=== PATIENT | female | born 1950 | race Caucasian/White ===

== ENCOUNTER 2022-05-05 13:53 | Outpatient (CLI) | payer MEDICARE, SELFPAY ==
--- NOTE | ~2022-05-05 | DEXA_ITS ---
Bone Density Report Name: YOU DAMON Age: 71 Sex: Female Ethnicity: White Date of : 1950 Indication: postmenopausal; screening for osteoporosis; hysterectomy; Referring Provider: LORI DANG Study: Bone densitometry was performed. Exam Date: May 05, 2022 Accession number: [id number] Bone Density: Region BMD T-score Z-score Classification AP Spine(L1-L4) 1.070 0.2 2.5 Normal Femoral Neck (Left) 0.778 -0.6 1.3 Normal Total Hip (Left) 0.959 0.1 1.8 Normal Femoral Neck (Right) 0.657 -1.7 0.2 Osteopenia Total Hip (Right) 0.859 -0.7 1.0 Normal Total Hip Mean 0.909 -0.3 1.4 Normal World Health Organization criteria for BMD impression classify patients as: Normal (T-score at or above -1.0), Osteopenia (T-score between -1.0 and -2.5), or Osteoporosis (T-score at or below -2.5). 10-year Fracture Risk(1): Major Osteoporotic Fracture 11% Hip Fracture 2.2% Reported Risk Factors: [place] (), Neck BMD=0.657, BMI=24.8 (1) FRAX(R) Version 3.08. Fracture probability calculated for an untreated patient. Fracture probability may be lower if the patient has received treatment. Clinical Information Provided by Patient: Has used the following medications: Vitamin D, Calcium Has the following medical conditions: Hysterectomy Patient maximum height was 63 Menopause Age: 48 Drinks caffeinated beverages Onset of menses at age 11 Number of children 3 Impression: The patient has low bone mass, based on the Right Femoral Neck T-score. The patient has an estimated ten-year risk of hip fracture of 2.2% and an estimated ten-year risk of major fracture of 11%, based on the WHO FRAX algorithm. Discussion: BONE DENSITY IS LOW AT ONE OR MORE SKELETAL SITES. This patient's lowest T-score is low at one or more skeletal sites. It meets the World Health Organization's (WHO) criteria for ?low bone mass? (T-score between -1.0 and -2.5). The patient's 10-year risk of fracture as calculated by FRAX is less than the threshold where pharmacological therapy is recommended by the National Osteoporosis Foundation (NOF). However, all treatment decisions require clinical judgment and consideration of individual patient factors, including patient preferences, comorbidities, previous drug use, risk factors not captured in the FRAX model (e.g., frailty, falls, vitamin D deficiency, increased bone turnover, interval significant decline in bone density) and possible under or overestimation of fracture risk by FRAX. The patient should follow a healthful lifestyle (good nutrition with adequate calcium and vitamin D, and appropriate weight-bearing exercise). Follow-Up: Consider repeating this study in 2 to 3 years to reassess this patient's status, or sooner if there is some new clinical indication.
== END 2022-05-05 13:54 | disposition home or self-care (01) ==
LOC: ANHIMG 13:57
PROVIDERS: PCP Family Medicine; Visit Provider Nurse Practitioner Family
DX: Z78.0 Asymptomatic menopausal state (principal); M85.851 Other specified disorders of bone density and structure, right thigh
CPT/HCPCS: 77080

== ENCOUNTER 2022-08-10 07:43 | Outpatient (CLI) | payer OTHER, SELFPAY ==
--- NOTE | 2022-08-10 13:36 | ECG_ITS ---
Measurements Intervals [place] Rate: 75 P: 59 OR: 168 QRS: 17 QRSD: 130 T: 104 QT: 441 QTc: 495 Interpretive Statements SINUS RHYTHM MODERATE INTRAVENTRICULAR CONDUCTION DELAY ST DEVIATION AND MODERATE T-WAVE ABNORMALITY, CONSIDER LATERAL ISCHEMIA ABNORMAL ECG NO PREVIOUS ECG AVAILABLE FOR COMPARISON Electronically Signed On 08-10-2022 14:41:31 BUSINESS ENGLISH INSTRUCTOR by Jann Lindsay M.D.
== END 2022-08-10 07:44 | disposition home or self-care (01) ==
PROVIDERS: PCP Family Medicine; Visit Provider Nurse Practitioner Family
DX: Z13.6 Encounter for screening for cardiovascular disorders (principal); I45.9 Conduction disorder, unspecified
CPT/HCPCS: 93005

== ENCOUNTER 2022-10-29 16:54 | Outpatient (CLI) | payer MEDICARE, SELFPAY ==
--- NOTE | ~2022-10-29 | XR_ITS ---
Right Knee Technique: AP and lateral views were obtained. Clinical History: Pain Findings: No fracture or dislocation is seen. Osseous alignment is anatomic. Small tricompartmental o steophytes are present. Soft tissues are unremarkable. No joint effusion is seen. Impression: Mild tricompartmental osteoarthritis. Reviewed, dictated and finalized at location . Impression: Mild tricompartmental osteoarthritis.
--- NOTE | ~2022-10-29 | XR_ITS ---
Left Knee Technique: AP and lateral views were obtained. Clinical History: Pain Findings: No fracture or dislocation is seen. There is moderate tricompartmental degenerative spurrin g/osteophyte formation.. Soft tissues are unremarkable. No joint effusion is seen. Impression: Mild to moderate tricompartmental osteoarthritis, worst at the patellofemoral compartment. Reviewed, dictated and finalized at location . Impression: Mild to moderate tricompartmental osteoarthritis, worst at the patellofemoral c ompartment.
== END 2022-10-29 16:55 | disposition home or self-care (01) ==
LOC: ANHIMG 17:03
PROVIDERS: PCP Family Medicine; Visit Provider Nurse Practitioner Family
DX: M17.0 Bilateral primary osteoarthritis of knee (principal)
CPT/HCPCS: 73560

== ENCOUNTER 2024-11-14 14:34 | Outpatient (CLI) | payer MEDICARE, SELFPAY ==
--- OUTSIDE RECORDS SUMMARY | 2024-11-14 14:38 | XMS_ITS | Clinical Summary ---
Author Organization [facility] Address [address] [place] [address] Care Team Providers Care Early Head Start Director Name Role Phone Fredy Zelaya MD Primary Care Provider Allergies Active Allergy Reactions Criticality Noted Date Comments Sulfa (Sulfonamide Antibiotics) Urticaria,Hives High 04/07/2013 Sulfasalazine Hives Medium 10/22/2014 Medications rosuvastatin (CRESTOR) 10 mg tablet Take 1 tablet (10 mg total) by mouth daily 3 Active Myrbetriq 25 mg tablet extended release 24 hr Take 1 tablet (25 mg total) by mouth nightly 3 Active solifenacin (VESIcare) 5 mg tablet 3 Active ibuprofen (ADVIL,MOTRIN) 800 mg tablet TAKE 1 TABLET BY MOUTH WITH BREAKFAST AND DINNER NEEDED FOR PAIN 3 Active Active Problems Problem Noted Date Diagnosed Date Abnormal ECG 09/16/2022 Folliculitis 09/15/2021 11/17/2022 Melanocytic nevi of face 09/15/2021 023 Actinic keratosis 08/26/2020 11/17/2022 Overview (11/17/2022): Last Assessment & Plan: Bilateral cheeks and nasal dorsum Counseled patient on diagnosis, a/w sun exposure, pre-malignant nature w/ possible progression to SCC, and Tx options. Advised pt on importance of daily sun protection (SPF 30+, UVA/UVB) and monthly self skin exams. Discussed benefit, risks of LN2. Pt wish to proceed. LN2 applied to 4 lesions. See associated procedure note. Pt tolerated Tx well. Post-procedural blister and wound care instructions given. Neoplasm of uncertain behavior of skin 11/17/2022 Overview (11/17/2022): Last Assessment & Plan: DDx of right medial arm lesion: SCC vs. HAK vs. MMIS vs. ISK DDx of left anterior shoulder: BCC vs. Other Counseled pt on possible Dx and management options. Discussed benefit and risks of shave biopsy (including bleeding, infection, and possible scarring). Pt would like to proceed. Shave Biopsy x2 performed. Pt tolerated well. Post-procedure instructions given. Please see procedure note. Actinic skin damage 08/26/2020 11/17/2022 Overview (11/17/2022): Last Assessment & Plan: -Fair # of nevi and lentigines -Broad spectrum SPF-30 or higher sunscreen advised Skin lesion 10/29/2014 11/17/2022 Elevated cholesterol 02/16/2014 11/17/2022 Encounters Date Type Department Care Team Description 09/04/2024 3:45 PM CDT - 09/04/2024 11:59 PM CDT Hospital Encounter [facility] [place] [address] Screening mammogram, encounter for Discharge Disposition: Discharge to home or self care from Last 3 Months Surgical History Surgery Date Site/Laterality Comments HYSTERECTOMY 06/14/2001 - 06/13/2002 BLADDER SURGERY 06/14/2001 - 06/13/2002 Family History Medical History Relation Name Comments Asthma Brother Diabetes Father Heart disease Father Breast cancer Mother Ovarian cancer Mother Relation Name Status Comments Brother Alive Father Mother Social History Tobacco Use Types Packs/Day Years Used Date Smoking Tobacco: Never Smokeless Tobacco: Never AUDIT-C Answer Date Recorded Q1: How often do you have a drink containing alc ohol? 2-3 times a week 09/16/2022 Q2: How many drinks containi ng alcohol do you have on a typical day when you are drinking? 1 or 2 09/16/2022 Q3: How often do you have si x or more drinks on one occasion? 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 Gender Identity Not on file Sexual Orientation Not on file Obstetrics History Last Filed Vital Signs Vital Sign Reading Time Taken Comments Blood Pressure 136/86 11/17/2022 11:39 AM CDT Pulse 83 11/17/2022 11:39 AM CDT Temperature - - Respiratory Rate - - Oxygen Saturation 97% 10/21/2022 10: 03 AM CDT Inhaled Oxygen Concentration - - Weight 64.8 kg (142 lb 14.4 oz) 023 11:39 AM CDT Height 160 cm (5' 3) 11/17/2022 11:39 AM CDT Body Mass Index 25.31 11/17/2022 11:39 AM CDT Plan of Treatment Health Maintenance Due Date Last Done Comments Colon Cancer Screening-Colonoscopy 1950 Depression Screening 1950 Fall Risk Assessment 1950 Hepatitis C Screening 1950 DTaP/Tdap/Td Vaccine (1 - Tdap) 1960 Hepatitis B Screening 11/24/1967 Well Visit 65+ 2014 Zoster Vaccine (2 of 2) 09/14/2018 07/20/2018, 04/26 Osteoporosis Screening-Bone Density Scan 01/21/2020 01/20/2018, 01/20/2018 Influenza Vaccine (Season Ended) 2025 01/31/2020, 03/31/2019, 03/22/2019, Additional history exists Breast Cancer Screening-Mammogram 09/04/2025 09/04/2024, 07/13/2023, 06/22/2022, Additional history exists Pneumococcal vaccine 65+ Completed 020, 11/01/2019, 03/17/2018 Procedures Procedure Name Priority Date/Time Associated Diagnosis Comments SCREENING MAMMOGRAM BILATERAL W MELE Schedule Routine, Read Routine (OP Routine) 09/04/2024 4:10 PM CDT Screening mammogram, encounter for from Last 3 Months Results * Screening Mammogram Bilateral W Mele (09/04/2024 4:10 PM CDT) Anatomical Region Laterality Modality Breast Bilateral Mammography Narrative 09/05/2024 12:11 PM CDT Mammogram Technique: Bilateral Digital Breast Tomosynthesis, Bilateral C-view 2D Screening mammogram. Views obtained: bilateral craniocaudal and bilateral mediolateral oblique. Computer Aided Detection was performed. Mammogram Findings: The present examination has been compared to prior imaging studies performed at [facility] on 06/22/2022 and 07/13/2023, and at [facility] on 08/13/2022. There are scattered areas of fibroglandular density. There is no suspicious abnormality in either breast. Impression: There is no mammographic evidence of malignancy. Annual screening mammography is recommended. OVERALL FINAL ASSESSMENT: BI-RADS CATEGORY 1: Negative. Procedure Note Ruth Garibay MD - 09/05/2024 Mammogram Technique: Bilateral Digital Breast Tomosynthesis, Bilateral C-view 2D Screening mammogram. Views obtained: bilateral craniocaudal and bilateral mediolateral oblique. Computer Aided Detection was performed. Mammogram Findings: The present examination has been compared to prior imaging studies performed at [facility] on 06/22/2022 and 07/13/2023, and at [facility] on 08/13/2022. There are scattered areas of fibroglandular density. There is no suspicious abnormality in either breast. Impression: There is no mammographic evidence of malignancy. Annual screening mammography is recommended. OVERALL FINAL ASSESSMENT: BI-RADS CATEGORY 1: Negative. us Self Screening Mammogram IMG MAMMO PROCEDURES Fi nal Result from Last 3 Months Insurance AETNA MEDICARE MEDICARE T MEDICARE Care Teams Early Head Start Director Relationship Specialty Start Date End Date Fredy Zelaya MD PCP - General Family Practice 06/19/22
--- OUTSIDE RECORDS SUMMARY | 2024-11-14 14:38 | XMS_ITS | Encounter Summary ---
Author Organization [facility] Address [address] [place] [address] Care Team Providers Care Train Controller Name Role Phone Daniel Stewart MD Primary Care Provider [phone] Encounter Details Date Type Department Care Team (Late st Contact Info) Description 08/12/2001 Outpatient Historical HIS PATIENT IN A BED [facility] [address] [place] [address] Layne Harman GENITAL PROLAPSE NEC (Primary Dx) Social History Tobacco Use Types Packs/Day Years Used Date Smoking Tobacco: Never Assessed Comments Unknown Sex and Gender Information Value Date Recorded Sex Assigned at Not on file Legal Sex Female 4:19 AM WASTE ELIMINATION Gender Identity Not on file Sexual Orientation Not on file documented as of this encounter Plan of Treatment Not on file documented as of this encounter Visit Diagnoses Diagnosis Genital prolapse NEC- Primary Other specified genital prolapse documented in this encounter Care Teams Train Controller Relationship Specialty Start Date End Date Daniel Stewart [place] [address] [place] [address] PCP - General 08/12/01 documented as of this encounter
--- OUTSIDE RECORDS SUMMARY | 2024-11-14 14:38 | XMS_ITS | Encounter Summary ---
Author Organization [facility] Address [address] [facility] [place] [address] Care Team Providers Care Buyer Tobacco Head Name Role Phone Fredy Zelaya MD Primary Care Provider Reason for Visit * Reason Onset Date Comments Appointment 04/13/2022 Encounter Details Date Type Department Care Team (Late st Contact Info) Description 04/13/2022 Telephone [facility] [address] [place] [address] Roldan Nayak MD [address] [place] [address] [place] [address] Appointment Social History Tobacco Use Types Packs/Day Years Used Date Smoking Tobacco: Never Smokeless Tobacco: Never Alcohol Use Standard Drinks/Week Comments Yes 0 (1 standard drink = 0.6 oz pur e alcohol) Comments Unknown Sex and Gender Information Value Date Recorded Sex Assigned at Female 01/29/2023 9:37 AM CDT Legal Sex Female 6:29 AM MAKEUP SALES ADVISOR Gender Identity Female 01/29/2023 9:37 AM CDT Sexual Orientation Not on file documented as of this encounter Miscellaneous Notes * Telephone Encounter - Yue Jaocme - 04/13/2022 2:35 PM CDT Requesting sooner appt than September, seen every 6mo. documented in this encounter Plan of Treatment Upcoming Encounters Date Type Department Care Team (Late st Contact Info) Description 04/16/2025 8:30 AM MAKEUP SALES ADVISOR Office Visit [facility] - Dermatology [address] [place] [address], [place] [address] Roldan Nayak MD [address] [place] [address] [address] [place] [address] documented as of this encounter Visit Diagnoses Not on filedocumented in this encounter Care Teams Buyer Tobacco Head Relationship Specialty Start Date End Date Fredy Zelaya MD [address] [place] [address] PCP - General 12/20/17 documented as of this encounter
--- OUTSIDE RECORDS SUMMARY | 2024-11-14 14:38 | XMS_ITS | Clinical Summary ---
Author Organization [facility] Address [address] [facility] [place] [address] Care Team Providers Care Lab Nurse Name Role Phone Fredy Zelaya MD Primary Care Provider Source Comments [facility],non-owned Affiliates and Associated Physician Practices is amultiple site organization consisting of ambulatory clinics and hospital sitesin [place], [place], [place] and [place]. This disclosure is being madepursuant to the Care Everywhere program and may not contain all information available regarding this patient. Last updated 18.[facility] Allergies Active Allergy Reactions Criticality Noted Date Comments Sulfa Antibiotics Urticaria High 04/07/2013 Sulfa Drugs Urticaria Medium 10/22/2014 Sulfasalazine Urticaria Medium 10/22/2014 Medications * Be aware that medications may not be up to date on this document. Alwaysverify current medications with the patient. cetirizine (ZYRTEC ALLERGY) 10 MG gel capsule Take 1 (one) capsule by mouth once daily Active famotidine (Pepcid) 20 MG tablet 03/13/2022 Active solifenacin (Vesicare) 5 MG tablet Take 1 (one) tablet by mouth once daily 01/05/2023 Active rosuvastatin (Crestor) 10 MG tablet Take 1 (one) tablet by mouth once daily 03/29/2023 Active Myrbetriq 25 MG tablet Take 1 (one) tablet by mouth 09/17/2023 Active imiquimod (Aldara) 5 % creamIndication s:Basal cell carcinoma (BCC) of back Apply to affected area five times weekly at bedtime for 6 weeks, leave on skin for 8 hours. 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 S/p WLE 04/14/2016. MIS L posterior neck s/p WLE 03/10/2017 Assessment & Plan (08/26/2020 12:26 PM CDT): Regular TBSE w/ general derm - Annual eye exam - Yearly CONSULTING APPLICATION ENGINEER exam - Self skin exams to look for ABCDE's/ ugly duckling - Regular self lymph node exam. - Inform first degree family members of dx and the need for them to have TBSE History of nonmelanoma skin cancer 08/26/2020 Assessment & Plan (08/26/2020 12:26 PM CDT): -No evidence of recurrence pending bx -Sun protection behaviors advised Actinic skin damage 08/26/2020 Assessment & Plan (08/26/2020 12:26 PM CDT): -Fair # of nevi and lentigines -Broad spectrum SPF-30 or higher sunscreen advised Inflamed seborrheic keratosis 08/26/2020 Assessment & Plan (08/26/2020 12:27 PM CDT): Counseled pt on Dx, etiology, disease course, and Tx options. Discussed benefit, risks of LN2 Tx. Pt wish to proceed with LN2. LN2 applied to 1 lesion. Pt tolerated well. Post-procedural blister and wound instructions given. Seborrheic keratoses 08/26/2020 Assessment & Plan (08/26/2020 12:28 PM CDT): Explained benign nature, reassurance provided. Neoplasm of uncertain behavior of skin Assessment & Plan (08/26/2020 12:28 PM CDT): DDx of right medial arm lesion: SCC vs. HAK vs. MMIS vs. ISK DDx of left anterior shoulder: BCC vs. Other Counseled pt on possible Dx and management options. Discussed benefit and risks of shave biopsy (including bleeding, infection, and possible scarring). Pt would like to proceed. Shave Biopsy x2 performed. Pt tolerated well. Post-procedure instructions given. Please see procedure note. Actinic keratosis 08/26/2020 Assessment & Plan (08/26/2020 12:26 PM CDT): Bilateral cheeks and nasal dorsum Counseled patient [...] Post-procedural blister and wound care instructions given. Skin lesion 10/29/2014 Encounters Date Type Department Care Team Description 10/09/2024 8:20 AM CDT Office Visit [facility] - Dermatology [address] [place] [address] [place] [id number] Roldan Nayak MD Basal cell carcinoma (BCC) of back (Primary Dx); Neoplasm of uncertain behavior of skin; Hx of nonmelanoma skin cancer; History of malignant melanoma; Lentigines; Seborrheic keratoses; Multiple benign melanocytic nevi of upper and lower extremities and trunk; Actinic keratosis; Inflamed seborrheic keratosis 10/09/2024 Travel from Last 3 Months Immunizations Immunization Administration Dates Next Due INFLUENZA VACCINE 03/22/2019 INFLUENZA VACCINE, HIGH-DOSE , QUADR. (FLUZONE HIGH-DOSE QUADRIVALENT; 65Y+), 0.7 ML (HD-IIV4) 01/31/2020 PNEUMOCOCCAL PPSV23 02/17/2020 Pneumococcal Pcv13 Conj 03/17/2018 Zoster Hzv Vacc Recombinant Inj Im 07/20/2018, Family History Medical History Relation Name Comments None Known Brother None Known Father None Known Maternal Aunt None Known Maternal Grandfather None Known Maternal Grandmother None Known Maternal Uncle Cancer - Skin, Non Melanoma Mother None Known Other None Known Paternal Aunt None Known Paternal Grandfather None Known Paternal Grandmother None Known Paternal Uncle None Known Sister Asthma Neg Hx CVA Neg Hx Cancer - Breast Neg Hx Cancer - Other Neg Hx Cancer - Skin, Melanoma Neg Hx Eczema Neg Hx Hemophilia Neg Hx Psoriasis Neg Hx Relation Name Status Comments Brother Father Maternal Aunt Maternal Grandfather Maternal Grandmother Maternal Uncle Mother Other Paternal Aunt Paternal Grandfather Paternal Grandmother Paternal Uncle Sister Social History Tobacco Use Types Packs/Day Years Used Date Smoking Tobacco: Never Smokeless Tobacco: Never Tobacco Cessation:Counseling Given: Not Answered Alcohol Use Standard Drinks/Week Comments Yes 0 (1 standard drink = 0.6 oz pur e alcohol) once weekly Comments No Sex and Gender Information Value Date Recorded Sex Assigned at Female 01/29/2023 9:37 AM CDT Legal Sex Female 6:29 AM DENTAL SCHEDULING COORDINATOR Gender Identity Female 01/29/2023 9:37 AM CDT Sexual Orientation Not on file Last Filed Vital Signs Vital Sign Reading Time Taken Comments Blood Pressure 144/71 07/16/2023 12:00 PM DENTAL SCHEDULING COORDINATOR Pulse 79 07/16/2023 12:00 PM DENTAL SCHEDULING COORDINATOR Temperature 36.3 C (97.4 F) 07/16/2023 11:21 AM DENTAL SCHEDULING COORDINATOR Respiratory Rate 22 07/16/2023 12:00 PM DENTAL SCHEDULING COORDINATOR Oxygen Saturation 96% 07/16/2023 12:00 PM DENTAL SCHEDULING COORDINATOR Inhaled Oxygen Concentration - - Weight 66 kg (145 lb 8 oz) 07/16/2023 8:03 AM CS T Height 160 cm (5' 3) 07/16/2023 8:03 AM DENTAL SCHEDULING COORDINATOR Body Mass Index 25.77 07/16/2023 8:03 AM DENTAL SCHEDULING COORDINATOR Plan of Treatment Upcoming Encounters Date Type Department Care Team (Late st Contact Info) Description 04/16/2025 8:30 AM DENTAL SCHEDULING COORDINATOR Office Visit [facility] - Dermatology [address] [facility], [place] [address] Roldan Nayak MD [address] [facility] [address] [place] [address] Health Maintenance Due Date Last Done Comments COLOGUARD (AGES 45-75) - COLON CA SCREENING 1950 COLON MONITORING 1950 COLONOSCOPY - COLON CA SCREENING 1949 CT COLONOGRAPHY - COLON CA SCREENING 1950 Colorectal Cancer Screening 1950 FIT - COLON CA SCREENING 1950 FLEX SIG - COLON CA SCREENING 1950 HEPATITIS C SCREENING 11/19/1967 DTAP/TDAP/TD VACCINES (1 - Tdap) 1968 COVID-19 VACCINE ( - 2023- season) 2024 DEPRESSION SCREENING 06/14/2024 MEDICARE AWV CALENDAR YEAR 2024 Respiratory Syncytial Virus (RSV) Vaccine Pt: or over 60 yrs (1 - 1-dose 75+ series) 2024 INFLUENZA VACCINE (Season Ended) 2025 01/31/2020, 03/22/2019 MAMMOGRAM 09/04/2026 09/04/2024, 08/13, 07/13/2023, Additional history exists BONE DENSITY TESTING Completed 01/20/2018 ZOSTER VACCINE Completed 07/20/2018, 04/26/2018 PNEUMOCOCCAL VACCINE 50+ Completed 02/17/2020, 09/2017 HEPATITIS B VACCINE Aged Out No longe r eligible based on patient's age to complete this topic HIB VACCINE Aged Out No longer eligi ble based on patient's age to complete this topic HPV VACCINE Aged Out No longer eligi ble based on patient's age to complete this topic MENINGOCOCCAL (Group B) VACCINE SHARED DECISION-MAKING Aged Out No longer eligible based on patient's age to complete this topic MENINGOCOCCAL GROUPS A/C/Y/W VACCINE Aged Out No longer eligible based on patient's age to complete this topic Procedures Procedure Name Priority Date/Time Associated Diagnosis Comments ID DESTROY PREMALIG LESION, 2-14 Routine 10/09/2024 8:53 AM CDT Actinic keratosis ID DESTROY PREMALIG LESION, 1ST LESION Routine 10/09/2024 8:53 AM CDT Actinic keratosis ID DESTRUCT BENIGN LESION, 1-14 Routine 10/09/2024 8:53 AM CDT Inflamed seborrheic keratosis from Last 3 Months Results * ID DESTROY PREMALIG LESION, 1ST LESION, ID DESTROY PREMALIG LESION, 2-14 (10/09/2024 8:53 AM CDT) Roldan Arenas MD - 10/09/2024 8:53 AM CDT Roldan Nayak MD 10/09/2024 9:30 AM Diagnosis and treatment options discussed. Cryotherapy (Liquid Nitrogen) to 2 AK(s) (location: right forehead and left cheek ) x 6-7 seconds each. Number of cycles: 1. Wound care reviewed. Roldan Nayak MD PROCEDURE/MINOR SURGICAL SOPHIE LIVE Final Result * ID DESTRUCT BENIGN LESION, 1-14 (10/09/2024 8:53 AM CDT) Roldan Arenas MD - 10/09/2024 8:53 AM CDT Roldan Nayak MD 10/09/2024 9:30 AM Diagnosis and treatment options discussed. Cryotherapy (Liquid Nitrogen) to 1 ISK(s) (location: right medial thigh ) x 6-10 seconds each. Number of cycles: 2. Wound care reviewed. Roldan Nayak MD PROCEDURE/MINOR SURGICAL SOPHIE LIVE Final Result from Last 3 Months Insurance AETNA AETNA MEDICARE ADV Care Teams Lab Nurse Relationship Specialty Start Date End Date Fredy Zelaya MD [address] [place] [id number] PCP - General 12/20/17
--- OUTSIDE RECORDS SUMMARY | 2024-11-14 14:38 | XMS_ITS | Clinical Summary ---
Author Organization [facility] Address [address] [place] [address] Care Team Providers Care Openstack Cloud Consulting Architect Name Role Phone Daniel Stewart MD Primary Care Provider [phone] Allergies Active Allergy Reactions Criticality Noted Date Comments Sulfa (Sulfonamide Antibiotics) Hives High 03/15 Medications CRESTOR 5 mg tablet 03/21/2013 Active cetirizine (ZYRTEC) 5 mg tablet Take 5 mg by mouth daily. Active alendronate (FOSAMAX) 70 mg tabletIndication s:Osteopenia, unspecified location TAKE ONE TABLET BY MOUTH EVERY 7 DAYS ON AN EMPTY STOMACH BEFORE OTHER MEDS WITH 8 OUNCES OF WATER, STAY UPRIGHT FOR 30 MINUTES 12 Tablet 4 02/06/2020 Active oxybutynin chloride (DITROPAN XL) 10 mg Extended Release 24 hour tabletIndication s:Overactive bladder Take 1 Tablet (10 mg) by mouth daily. 90 Tablet 4 09/02/2021 Active Active Problems Problem Noted Date Diagnosed Date S/P colonoscopy 02/16/2014 Overview (02/16/2014): 02/16/2014- negative for polyps. Next screening colonoscopy in 10 years. 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 Gender Identity Not on file Sexual Orientation Not on file Occupation Industry Job Start Date Job End Date Not on file Not on file Not on file Not on file Last Filed Vital Signs Vital Sign Reading Time Taken Comments Blood Pressure 111/61 02/06/2020 2:01 PM CDT Pulse 78 10/13/2017 10:03 AM CDT Temperature 36.9 C (98.4 F) 02/16/2014 10:59 AM CDT Respiratory Rate 16 02/16/2014 11:19 AM CDT Oxygen Saturation 96% 02/16/2014 11:19 AM CDT Inhaled Oxygen Concentration - - Weight 63.7 kg (140 lb 8 oz) 02/06/2020 2:01 PM CDT Height 160 cm (5' 3) 02/06/2020 2:01 PM CDT Body Mass Index 24.89 02/06/2020 2:01 PM CDT Plan of Treatment Health Maintenance Due Date Last Done Comments DTAP/TDAP/TD VACCINES (1 - Tdap) 1968 FIT-DNA Q 3 years 1994 FIT/FOBT Q 1 year 1994 Flex Sig/CT Colonography Q 5 years 1994 BREAST CANCER SCREENING 06/11/2022 06/11/20 21, 04/25/2020, 02/22/2019, Additional history exists OSTEOPOROSIS SCREENING 01/20/2023 01/20/2018 INFLUENZA VACCINE (#1) 2024 01/31/2020 COLORECTAL SCREENING 02/17/2024 02/16/2014, 02/17/20 14 Colorectal Cancer Screening 02/17/2024 RSV VACCINE (60+ or ) (1 - 1-dose 75+ series) 2024 ZOSTER VACCINE Completed 07/20/2018, 04/26/2018 PNEUMOCOCCAL VACCINE 50+ YEARS Completed 02/17/2020 , 03/17/2018 Procedures Procedure Name Priority Date/Time Associated Diagnosis Comments MAMMO 3D MELE SCREEN BILAT W OR WO CAD Routine 04/25/2020 Visit for screening mammogram XR DEXA BONE DENSITY AXIAL 1 OR MORE SITES Routine 01/20/2018 11:17 AM CDT Menopause from Last 3 Months or Most Recently Relevant to Health Maintenance Results * MAMMO SCRN BILAT 3D MELE W OR WO CAD (04/25/2020) Anatomical Region Laterality Modality Breast Bilateral Mammography us Kip Diaz DO MAMMO ORDERABLES Final Result * XR DEXA BONE DENSITY AXIAL 1 OR MORE SITES (01/20/2018 11:17 AM CDT) Anatomical Region Laterality Modality Digital Radiogra phy 01/20/2018 11:1 7 AM CDT Impressions 01/20/2018 11:20 AM CDT IMPRESSION: Lumbar Spine T-score: -0.6, Normal BMD. Left femoral neck T-score: -1.7, Osteopenic BMD. Right femoral neck T-score: -1.9, Osteopenic BMD. DEFINITIONS: Normal: T-score above -1.0 Osteopenia T-score less than -1.0 and above -2.5 Osteoporosis: T-score < -2.5 FRAX FRACTURE RISK ASSESSMENT: Risk factors: History of fracture 10 Year Probability Of Fracture -Major Osteoporotic: 17.9% -Hip: 2.9% -Comparison population: [place], A major osteoporotic fracture is defined as a fracture of the spine, forearm, hip or shoulder. FOLLOW-UP RECOMMENDATIONS: Patients without high risk factors for osteoporosis: T-score -1.0 to -1.5 - Consider repeat BMD in 5-10 years T-score -1.5 to -2.0 - Consider repeat BMD in 3-5 years T-score -2.0 to - 2.5 - Consider repeat BMD every 2 years Patients on treatment for osteoporosis: 1-2 years after initiation of treatment and every 2 [address] Zack Junior DO DICTATION LOCATION: Location 1 - [facility] 01/20/2018 11:20 AM CDT XR DEXA BONE DENSITY AXIAL 1 OR MORE SITES DATE: 01/20/2018 11:17 AM HISTORY: 67 years old Female with post menopausal symptoms. PROCEDURE: Planar images of the lumbar spine and hip(s) using a [employer] CK1 DEXA scanner for bone mineral density determination (BMD). FINDINGS: Lumbar Spine (L1-L4) 1.105 gm/cm2, T-score: -0.6 Left femoral neck 0.806 gm/cm2, T-score: -1.7 Right femoral neck 0.777 gm/cm2, T-score: -1.9 Comments: None Procedure Note Zack Junior DO - 01/20/2018 XR DEXA BONE DENSITY AXIAL 1 OR MORE SITES DATE: 01/20/2018 11:17 AM HISTORY: 67 years old Female with post menopausal symptoms. PROCEDURE: Planar images of the lumbar spine and hip(s) using a [employer] CK1 DEXA scanner for bone mineral density determination (BMD). FINDINGS: Lumbar Spine (L1-L4) 1.105 gm/cm2, T-score: -0.6 Left femoral neck 0.806 gm/cm2, T-score: -1.7 Right femoral neck 0.777 gm/cm2, T-score: -1.9 Comments: None IMPRESSION: Lumbar Spine T-score: -0.6, Normal BMD. Left femoral neck T-score: -1.7, Osteopenic BMD. Right femoral neck T-score: -1.9, Osteopenic BMD. DEFINITIONS: Normal: T-score above -1.0 Osteopenia T-score less than -1.0 and above -2.5 Osteoporosis: T-score < -2.5 FRAX FRACTURE RISK ASSESSMENT: Risk factors: History of fracture 10 Year Probability Of Fracture -Major Osteoporotic: 17.9% -Hip: 2.9% -Comparison population: [place], A major osteoporotic fracture is defined as a fracture of the spine, forearm, hip or shoulder. FOLLOW-UP RECOMMENDATIONS: Patients without high risk factors for osteoporosis: T-score -1.0 to -1.5 - Consider repeat BMD in 5-10 years T-score -1.5 to -2.0 - Consider repeat BMD in 3-5 years T-score -2.0 to - 2.5 - Consider repeat BMD every 2 years Patients on treatment for osteoporosis: 1-2 years after initiation of treatment and every 2 years thereafter [address] Zack Junior DO DICTATION LOCATION: Location 1 - [facility] us Kip Diaz DO DIAGNOSTIC IMAGING ORDERABLES F inal Result from Last 3 Months or Most Recently Relevant to Health Maintenance Insurance [facility] [id number] [place] [address] Advance Directives For more information, please contact: [phone] * Full Code (Latest Code Status on File) Date Activated Date Inactivated Comments 02/16/2014 10:05 AM 02/16/2014 2:07 PM Care Teams Openstack Cloud Consulting Architect Relationship Specialty Start Date End Date Daniel Stewart MD [address] [place] [address] PCP - General 08/12/01
--- OUTSIDE RECORDS SUMMARY | 2024-11-14 14:39 | XMS_ITS | Referral Summary ---
Author Organization [facility] Address [address] [place] [address] Care Team Providers Care Terminal Manager Name Role Phone Fredy Zelaya MD Primary Care Provider Encounters Date Type Department Care Team Description 09/04/2024 3:45 PM CDT - 09/04/2024 11:59 PM CDT Hospital Encounter [address] [place], [place] [id number] Screening mammogram, encounter for Discharge Disposition: Discharge to home or self care from Last 3 Months Allergies Active Allergy Reactions Criticality Noted Date [...] lesion 10/29/2014 11/17/2022 Elevated cholesterol 02/16/2014 11/17/2022 Social History Tobacco Use Types Packs/Day Years [...] on file 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 There are scattered areas of [...] compared to prior imaging studies performed at [facility] on 06/22/2022 and 07/13/2023, and at [facility] on 08/13/2022. There are scattered areas of fibroglandular density. There is no suspicious abnormality in either breast. Impression: There is no mammographic evidence of malignancy. Annual screening mammography is recommended. OVERALL FINAL ASSESSMENT: BI-RADS CATEGORY 1: Negative. us Self Screening Mammogram IMG MAMMO PROCEDURES Fi nal Result from Last 3 Months Insurance [id number] [place], [place] [address] MEDICARE AETNA MEDICARE AET MEDICARE Care Teams Terminal Manager Relationship Specialty Start Date End Date Fredy Zelaya MD PCP - General Family Practice 06/19/22
[2024-11-14 21:02] LABS: Add Urine Microscopic? YES; Appearance Urine Cloudy (Clear); Bacteria Urine 4+ /hpf; Bilirubin Urine Negative (Negative); Blood Urine Non-Hemolyzed Trace (Negative); Budding Yeast Urine Present /hpf; Color Urine Yellow (Yellow); Glucose Urine UA Negative (Negative); Hyaline Casts Urine Present /lpf; Ketones Urine Negative (Negative); Leukocyte Esterase Ur 3+ LEU/UL (Negative); Need Manual Microscopic Reviewed; Nitrate Urine Positive (Negative); Protein Urine Trace mg/dL (Negative); RBC Urine 0-2 /hpf (0-2); Specific Grav Ur 1.024 (1.001-1.035); Squamous Epithelial Cell Urine None Seen /hpf (Few); Urobilinogen Urine 0.2 mg/dL (<2.0); WBC Urine >100 /hpf (0-3); pH Urine 5.5 (5.0-9.0)
== END 2024-11-14 14:35 | disposition home or self-care (01) ==
LOC: ANHGOSHLAB 14:35
PROVIDERS: PCP Family Medicine; Visit Provider Nurse Practitioner Family
DX: R39.9 Unspecified symptoms and signs involving the genitourinary system (principal)
CPT/HCPCS: 81001; 87077; 87086; 87186

== ENCOUNTER 2024-12-05 15:12 | Outpatient (CLI) | payer MEDICARE, SELFPAY ==
[2024-12-05 19:08] LABS: Basophils Absolute Auto 0.1 K/mm3 (0.0-0.1); Basophils Percent Auto 0.7 % (0.2-1.2); Eosinophils Absolute Auto 0.1 K/mm3 (0-0.3); Eosinophils Percent Auto 1.6 % (0-4.4); Hematocrit 41.8 % (37.0-47.0); Hemoglobin 13.3 g/dL (12.0-15.0); Immature Granulocyte Absolute 0.01 K/mm3 (0.00-0.031); Immature Granulocyte Percent A 0.1 % (0-0.5); Lymphocytes Absolute Auto 2.65 K/mm3 (0.9-3.2); Lymphocytes Percent Auto 32.2 % (18.3-44.2); Mean Corpuscular HGB Conc 31.8 g/dl (32-36); Mean Corpuscular Hemoglobin 29.7 pg (26-34); Mean Corpuscular Volume 93.3 fl (80-100); Mean Platelet Volume 11.6 fl (7.4-10.4); Monocytes Absolute Auto 0.9 K/mm3 (0.1-0.6); Monocytes Percent Auto 10.5 % (2.6-8.5); Neutrophils Absolute Auto 4.5 K/mm3 (1.3-6.7); Neutrophils Percent Auto 54.9 % (45.5-73.1); Platelet Count Result 227 k/mm3 (150-375); Red Blood Count 4.48 M/mm3 (4.2-5.4); Red Cell Distribution Width 12.8 % (11.5-14.5); White Blood Count 8.2 K/mm3 (4.5-10.0)
[2024-12-05 19:34] LABS: Appearance Urine Clear (Clear); Color Urine Yellow (Yellow); pH Urine 5.5 (5.0-9.0)
[2024-12-05 19:35] LABS: Add Urine Microscopic? YES; Bacteria Urine 1+ /hpf
[2024-12-05 19:36] LABS: Bilirubin Urine Negative (Negative); Blood Urine Trace-Lysed (Negative); Glucose Urine UA Negative (Negative); Ketones Urine 1+ mg/dL (Negative); Leukocyte Esterase Ur 3+ LEU/UL (Negative); Nitrate Urine Negative (Negative); Protein Urine 1+ mg/dL (Negative); Specific Grav Ur 1.025 (1.001-1.035); Squamous Epithelial Cell Urine Moderate /hpf (Few)
[2024-12-05 19:37] LABS: Urobilinogen Urine 0.2 mg/dL (<2.0)
[2024-12-05 20:02] LABS: Vitamin D 25 Hydroxy 79.7 ng/mL
[2024-12-05 20:39] LABS: Alanine Aminotransferase 29 U/L (6-35); Albumin Level 4.3 g/dL (3.5-5.1); Alkaline Phosphatase 75 U/L (38-126); Anion Gap 8 mmol/L (4-12); Aspartate Amino Transferase 38 U/L (14-36); Bilirubin,Total 0.5 mg/dL (0.2-1.3); Blood Urea Nitrogen 23 mg/dL (7-17); Calcium 10.1 mg/dL (8.4-10.2); Carbon Dioxide 28 mmol/L (22-30); Chloride 101 mmol/L (98-107); Cholesterol 210 mg/dL (0-200); Estimated Glomerular Filt Rate 59; Glucose 104 mg/dL (65-110); HDL Direct 74 mg/dL; Potassium 4.2 mmol/L (3.4-5.0); Sodium 137 mmol/L (137-145); Total Protein 7.2 g/dL (6.3-8.2); Triglycerides 212 mg/dL (<150)
[2024-12-05 20:49] LABS: LDL Cholesterol Direct 81 mg/dL
== END 2024-12-05 15:13 | disposition home or self-care (01) ==
LOC: ANHGOSHLAB 15:12
PROVIDERS: PCP Nurse Practitioner Family; Visit Provider Nurse Practitioner Family
DX: E78.5 Hyperlipidemia, unspecified (principal); I10 Essential (primary) hypertension; E55.9 Vitamin D deficiency, unspecified; E53.8 Deficiency of other specified B group vitamins; R53.83 Other fatigue; R39.9 Unspecified symptoms and signs involving the genitourinary system
CPT/HCPCS: 36415; 80053; 80061; 81001; 82306; 82607; 84443; 85025

== ENCOUNTER 2025-02-20 09:57 | Outpatient (CLI) | payer MEDICARE, SELFPAY ==
--- OUTSIDE RECORDS SUMMARY | 2025-02-20 11:19 | XMS_ITS | Clinical Summary ---
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 Gender Identity Not on file Sexual Orientation [...] Density Scan 01/21/2020 01/20/2018, 01/20/2018 Influenza Vaccine (#1) 2025 0, 03/31/2019, 03/22/2019, Additional history exists Pneumococcal vaccine 65+ Completed 020, 11/01/2019, 03/17/2018 Breast Cancer Screening-Mammogram Discontinued 09/04/2024, 07/13/2023, 06/22/2022, Additional history exists Procedures Procedure Name Priority Date/Time Associated Diagnosis Comments SCREENING MAMMOGRAM BILATERAL W MELE Schedule Routine, Read Routine (OP Routine) 09/04/2024 4:10 PM CDT Screening mammogram, encounter for from Last 3 Months or Most Recently Relevant to Health Maintenance Results * Screening Mammogram Bilateral W Mele (09/04/2024 4:10 PM CDT) Anatomical Region Laterality Modality Breast Bilateral Mammography Narrative 09/05/2024 12:11 PM CDT Mammogram Technique: Bilateral Digital Breast Tomosynthesis, Bilateral C-view 2D Screening mammogram. Views obtained: bilateral craniocaudal and bilateral mediolateral oblique. Computer Aided Detection was performed. Mammogram Findings: The present examination has been compared to prior imaging studies performed at [facility] on 06/22/2022 and 07/13/2023, and at [facility] on 08/13/2022. There are scattered areas of [...] compared to prior imaging studies performed at [facility] on 06/22/2022 and 07/13/2023, and at [facility] on 08/13/2022. There are scattered areas of fibroglandular density. There is no suspicious abnormality in either breast. Impression: There is no mammographic evidence of malignancy. Annual screening mammography is recommended. OVERALL FINAL ASSESSMENT: BI-RADS CATEGORY 1: Negative. us Self Screening Mammogram IMG MAMMO PROCEDURES Fi nal Result from Last 3 Months or Most Recently Relevant to Health Maintenance Insurance AETNA MEDICARE AET MEDICARE AET MEDICARE Care Teams Pyrometer Mechanic Relationship Specialty Start Date End Date Fredy Zelaya MD PCP - General Family Practice 06/19/22
--- OUTSIDE RECORDS SUMMARY | 2025-02-20 11:19 | XMS_ITS | Encounter Summary ---
Author Organization [facility] Address [address] [facility] [place] [address] Care Team Providers Care Keypuncher Name Role Phone Fredy Zelaya MD Primary Care Provider Reason for Visit * Reason Onset Date Comments Appointment 04/13/2022 Encounter Details Date Type Department Care Team (Late st Contact Info) Description 04/13/2022 Telephone [facility] [address] [place] [address] Roldan Nayak MD [address] [place] [address] [place] [address] Appointment Social History Tobacco Use Types Packs/Day Years Used Date Smoking Tobacco: Never Smokeless Tobacco: Never Alcohol Use Standard Drinks/Week Comments Yes 0 (1 standard drink = 0.6 oz pur e alcohol) Comments Unknown Sex and Gender Information Value Date Recorded Sex Assigned at Female 01/29/2023 9:37 AM CDT Legal Sex Female 6:29 AM PLAYGROUND DIRECTOR Gender Identity Female 01/29/2023 9:37 AM CDT Sexual Orientation Not on file documented as of this encounter Miscellaneous Notes * Telephone Encounter - Yue Jacome - 04/13/2022 2:35 PM CDT Requesting sooner appt than September, seen every 6mo. documented in this encounter Plan of Treatment Upcoming Encounters Date Type Department Care Team (Late st Contact Info) Description 04/16/2025 8:30 AM PLAYGROUND DIRECTOR Office Visit [facility] - Dermatology [address] [place] [address], [place] [address] Roldan Nayak MD [address] [place] [address] [address] [place] [address] documented as of this encounter Visit Diagnoses Not on filedocumented in this encounter Care Teams Keypuncher Relationship Specialty Start Date End Date Fredy Zelaya MD [address] [place] [id number] PCP - General 12/20/17 documented as of this encounter
--- OUTSIDE RECORDS SUMMARY | 2025-02-20 11:19 | XMS_ITS | Clinical Summary ---
Author Organization [facility] Address [address] [place] [address] Care Team Providers Care Proofreader Name Role Phone Fredy Zelaya MD Primary Care Provider Source Comments [facility],non-owned Affiliates and Associated Physician Practices is amultiple site organization consisting of ambulatory clinics and hospital sitesin [place], [place], [place] and [place]. This disclosure is being madepursuant to the Care Everywhere program and may not contain all information available regarding this patient. Last updated 18.[facility] Allergies Active Allergy Reactions Criticality Noted Date [...] derm - Annual eye exam - Yearly PLASTER MAKER exam - Self skin exams to look [...] wound care instructions given. Skin lesion 10/29/2014 Immunizations Immunization Administration Dates Next Due INFLUENZA [...] AM CDT Legal Sex Female 6:29 AM GENERAL SURGERY PHYSICIAN ASSISTANT Gender Identity Female 01/29/2023 9:37 AM CDT Sexual Orientation Not on file Last Filed Vital Signs Vital Sign Reading Time Taken Comments Blood Pressure 144/71 07/16/2023 12:00 PM GENERAL SURGERY PHYSICIAN ASSISTANT Pulse 79 07/16/2023 12:00 PM GENERAL SURGERY PHYSICIAN ASSISTANT Temperature 36.3 C (97.4 F) 07/16/2023 11:21 AM GENERAL SURGERY PHYSICIAN ASSISTANT Respiratory Rate 22 07/16/2023 12:00 PM GENERAL SURGERY PHYSICIAN ASSISTANT Oxygen Saturation 96% 07/16/2023 12:00 PM GENERAL SURGERY PHYSICIAN ASSISTANT Inhaled Oxygen Concentration - - Weight 66 kg (145 lb 8 oz) 07/16/2023 8:03 AM CS T Height 160 cm (5' 3) 07/16/2023 8:03 AM GENERAL SURGERY PHYSICIAN ASSISTANT Body Mass Index 25.77 07/16/2023 8:03 AM GENERAL SURGERY PHYSICIAN ASSISTANT Plan of Treatment Upcoming Encounters Date Type Department Care Team (Late st Contact Info) Description 04/16/2025 8:30 AM GENERAL SURGERY PHYSICIAN ASSISTANT Office Visit [facility] - Dermatology [address] [place] [address], [place] [address] Roldan Nayak MD [address] [place] [address] [address] [place] [address] Health Maintenance Due Date Last Done Comments COLOGUARD (AGES 45-75) - COLON CA SCREENING 1949 COLON MONITORING 1949 COLONOSCOPY - COLON CA SCREENING 1949 CT COLONOGRAPHY - COLON CA SCREENING 1950 Colorectal Cancer Screening 1949 FIT - COLON CA SCREENING 1949 FLEX SIG - COLON CA SCREENING 1949 HEPATITIS C SCREENING 11/19/1967 DTAP/TDAP/TD VACCINES (1 - Tdap) 1968 DEPRESSION SCREENING 06/14/2024 MEDICARE AWV CALENDAR YEAR 2024 Respiratory Syncytial Virus (RSV) Vaccine Pt: or over 60 yrs (1 - 1-dose 75+ series) 2024 COVID-19 VACCINE ( - season) 2025 INFLUENZA VACCINE (#1) 2025 01/31/2020, 2018 MAMMOGRAM 09/04/2026 09/04/2024, 08/13, 07/13/2023, Additional history [...] on patient's age to complete this topic Insurance AETNA AETNA MEDICARE ADV Care Teams Proofreader Relationship Specialty Start Date End Date Fredy Zelaya MD [address] [place] [id number] PCP - General 12/20/17
--- OUTSIDE RECORDS SUMMARY | 2025-02-20 11:19 | XMS_ITS | Encounter Summary ---
Author Organization [facility] Address 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
--- OUTSIDE RECORDS SUMMARY | 2025-02-20 11:19 | XMS_ITS | Clinical Summary ---
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 Gender Identity Not on file Sexual Orientation [...] Flex Sig/CT Colonography Q 5 years 1994 OSTEOPOROSIS SCREENING 01/20/2023 01/20/2018 COLORECTAL SCREENING 02/17/2024 02/16/2014, 02/17/20 14 Colorectal Cancer Screening 02/17/2024 RSV VACCINE (60+ or ) (1 - 1-dose 75+ series) 2024 INFLUENZA VACCINE (#1) 2025 01/31/2020 ZOSTER VACCINE Completed 07/20/2018, 04/26/2018 PNEUMOCOCCAL VACCINE 50+ YEARS Completed 02/17/2020 , 03/17/2018 Procedures Procedure Name Priority Date/Time Associated Diagnosis Comments XR DEXA BONE DENSITY AXIAL 1 OR MORE SITES Routine 01/20/2018 11:17 AM CDT Menopause from Last 3 Months or Most Recently Relevant to Health Maintenance Results * XR DEXA BONE DENSITY AXIAL 1 [...] Junior DO DICTATION LOCATION: Location 1 - [facility] 01/20/2018 11:20 AM CDT XR DEXA BONE DENSITY AXIAL 1 OR MORE SITES DATE: 01/20/2018 11:17 AM HISTORY: 67 years old Female with post menopausal symptoms. PROCEDURE: Planar images of the lumbar spine and hip(s) using a [employer] DEXA scanner for bone mineral density determination [...] the lumbar spine and hip(s) using a [employer] List DEXA scanner for bone mineral density determination [...] Junior DO DICTATION LOCATION: Location 1 - [facility] Kip Diaz DO DIAGNOSTIC IMAGING ORDERABLES F inal Result from Last 3 Months or Most Recently Relevant to Health Maintenance Insurance Advance Directives For more information, please contact: [phone] * Full Code (Latest Code Status on File) Date Activated Date Inactivated Comments 02/16/2014 10:05 AM 02/16/2014 2:07 PM Care Teams Lab Animal Technologist Relationship Specialty Start Date End Date Daniel Stewart MD [address] [place] [address] PCP - General 08/12/01
[2025-02-20 13:20] LABS: Add Urine Microscopic? YES; Appearance Urine Turbid (Clear); Glucose Urine UA Negative (Negative); Leukocyte Esterase Ur 3+ LEU/UL (Negative); Nitrate Urine Positive (Negative); Non Pathogenic Casts 0-2; Specific Grav Ur 1.007 (1.001-1.035)
== END 2025-02-20 09:58 | disposition home or self-care (01) ==
PROVIDERS: PCP Nurse Practitioner Family; Visit Provider Nurse Practitioner Family
DX: R39.9 Unspecified symptoms and signs involving the genitourinary system (principal)
CPT/HCPCS: 81001; 87077; 87086; 87186

== ENCOUNTER 2025-04-30 13:27 | Outpatient (CLI) | payer MEDICARE, SELFPAY ==
[2025-04-30 19:01] LABS: Add Urine Microscopic? YES; Appearance Urine Turbid (Clear); Glucose Urine UA Negative (Negative); Leukocyte Esterase Ur 3+ LEU/UL (Negative); Nitrate Urine Positive (Negative); Specific Grav Ur 1.019 (1.001-1.035)
--- OUTSIDE RECORDS SUMMARY | 2025-04-30 22:44 | XMS_ITS | Clinical Summary ---
Author Organization [facility] Address [address] [place] [address] Care Team Providers Care Lap Machine Tender Name Role Phone Fredy Zelaya MD Primary [...] on file Legal Sex Female 9:43 PM LEASING ASSISTANT Gender Identity Not on file Sexual Orientation [...] compared to prior imaging studies performed at [facility] on 06/22/2022 and 07/13/2023, and at [facility] on 08/13/2022. There are scattered areas [...] compared to prior imaging studies performed at [facility] on 06/22/2022 and 07/13/2023, and at [facility] on 08/13/2022. There are scattered areas of fibroglandular density. There is no suspicious abnormality in either breast. Impression: There is no mammographic evidence of malignancy. Annual screening mammography is recommended. OVERALL FINAL ASSESSMENT: BI-RADS CATEGORY 1: Negative. us Self Screening Mammogram IMG MAMMO PROCEDURES Fi nal Result from Last 3 Months or Most Recently Relevant to Health Maintenance Insurance AETNA MEDICARE [facility] [place] [address] AETNA MEDICARE AETNA MEDICARE Care Teams Lap Machine Tender Relationship Specialty Start Date End Date Fredy Zelaya MD PCP - General Family Practice 06/19/22
== END 2025-04-30 13:28 | disposition home or self-care (01) ==
LOC: ANHGOSHLAB 13:28
PROVIDERS: PCP Family Medicine; Visit Provider Nurse Practitioner Family
DX: R39.9 Unspecified symptoms and signs involving the genitourinary system (principal)
CPT/HCPCS: 81001; 87086; 87186